=== PATIENT | female | born 1980 ===

== ENCOUNTER 2017-07-24 05:36 | Day surgery (SDC) | payer OTHER ==
[2017-07-24] VITALS (18 sets, daily range): BP systolic 112–145; BP diastolic 57–93
[~2017-07-24] VITALS: Ht 157.5 cm; Wt 93.9 kg
[~2017-07-24 05:36] MED LIST: IBUPROFEN600 MG ORAL; TRAMADOL HCL50 MG ORAL
[2017-07-24] MEDS ORDERED: EPINEPHrine 1mg/1ml Amp ONE ×2 (07:13→10:44)
[2017-07-24] MEDS ORDERED: Bupivacaine 0.25% Inj 30ml INJ ONE (07:14)
[2017-07-24] MEDS ORDERED: Bupivacaine 0.5% Inj 30 ml vial INJ ONE (07:14)
[2017-07-24] MEDS ORDERED: Bacitracin 50000 Units Vial ONE (07:14)
[2017-07-24] MEDS ORDERED: NeoSporin Gu Irrig 1ml Amp IRRIG ONE (07:14)
[2017-07-24] MEDS ORDERED: Ropivacaine 5mg/ml Vial 30ml INJ ONE (07:14)
[2017-07-24] MEDS ORDERED: Ketorolac 30mg Inj ONE ×2 (08:00→12:00)
[2017-07-24] MEDS ORDERED: fentaNYL 100 mcg/2 mL IV ONE ×2 (08:00→12:00)
[2017-07-24] MEDS ORDERED: Propofol 200mg/20ml IV ONE (08:00)
[2017-07-24] MEDS ORDERED: Morphine Sulfate 10mg/ml Inj ONE (08:00)
[2017-07-24] MEDS ORDERED: Metoclopramide 10mg/2ml Inj ONE (08:00)
[2017-07-24] MEDS ORDERED: Vecuronium 10 MG VIAL ONE (08:00)
[2017-07-24] MEDS ORDERED: LR 1000ml ONE (08:00)
[2017-07-24] MEDS ORDERED: Glycopyrrolate 0.2mg/ml 1ml Vial ONE (08:00)
--- NOTE | 2017-07-24 08:13 | Pre-Procedure Note/Attestation ---
Pre-Procedure Note/Attestation Complete Prior to Procedure Planned Procedure: right Procedure Narrative: Right Shoulder arthroscopic rotator cuff repair with subacromial decompression Indications for Procedure Pre-Operative Diagnosis: Right shoulder rotator cuff repair Attestation I attest that I discussed the nature of the procedure; its benefits; risks and complications; and alternatives (and the risks and benefits of such alternatives ), prior to the procedure, with the patient (or the patient's legal guest services representative). I attest that, if there was a reasonable possibility of needing a blood transfusion, the patient (or the patient's legal guest services representative) was given the [facility] standardized written summary, pursuant to the Enrique Tust[place] Blood Safety Act ([place] Health and Safety Code # 1645, as amended). I attest that I re-evaluated the patient just prior to the surgery and that there has been no change in the patient's H&P, except as documented below: Gabriel Rea MD Jul 24, 2017 08:13
[2017-07-24] MEDS ORDERED: Albuterol 90mcg Inhaler 8gm INH ONE (10:38)
--- NOTE | 2017-07-24 11:19 | Operative Note - PDOC ---
Operative Note Operative Note Date of Operation/Procedure: Jul 24, 2017 Chief Complaint: Right shoulder pain Pre-op Diagnosis: Right shoulder rotator cuff repair Procedure: Right shoulder arthroscopic assisted Rotator cuff repair Right shoulder bursectomy Right shoulder acromioplasty Post-op Diagnosis: Right shoulder rotator cuff tear Acromial spur and severe bursitis Surgeon: Fide Rea MD Screener Operator: Jhonathan Richards MD Anesthesiologist: Keyur SALEH Anesthesia: general, other Specimen: none Complications: none Condition: stable Estimated Blood Loss: minimal Drains: none Implant(s) used?: Yes Indications for Procedure Rotator cuff tear requiring suture anchors x 2 Description of Procedure Rt shoulder athroscopy with complete subacromial busectomy and acromioplasty and repair of rim tear of supraspinatous Gabriel Rea MD Jul 24, 2017 11:19
--- NOTE | 2017-07-24 11:43 | Anethesia Preoperative Eval ---
Anesthesia Pre-op PMH/ROS General Date of Evaluation: Jul 24, 2017 Time of Evaluation: 07:45 Anesthesiologist: CLAUDIA ASA Score: ASA 2 Mallampati Score Class I : Soft palate, uvula, fauces, pillars visible Class II: Soft palate, uvula, fauces visible Class III: Soft palate, base of uvula visible Class IV: Only hard plate visible Mallampati Classification: Class II Surgeon: Rona Diagnosis: Rotator Cuff Tear Surgical Procedure: right Shoulder Arthroscopy Social History: alcohol use Family History: no anesthesia problems Allergies: Coded Allergies: No Known Allergies (Unverified , 07/23/17) Medications: see eMAR Anesthesia Pre-op Phys. Exam Physician Exam Last Vital Signs Date Time Temp Pulse Resp B/P (MAP) Pulse Ox O2 Delivery O2 Flow Rate FiO2 07/24/17 06:35 98.1 74 20 112/57 98 Room Air Neurologic: CN 2-12 intact Cardiovascular: RRR Respiratory: CTA Gastrointestinal: S/NT/ND Airway Exam Mallampati Score: Class II Teeth: intact Anesthesia Pre-op A/P Labs Urine Test Test 07/24/17 05:45 Urine HCG, Qualitative Negative Edmar Emery M.D. Jul 24, 2017 11:43
[2017-07-24] MEDS ORDERED: Ketorolac 30mg Inj IV PRN (11:45)
[2017-07-24] MEDS ORDERED: Metoclopramide 10mg/2ml Inj IVP PRN (11:45)
[2017-07-24] MEDS ORDERED: Morphine Sulfate 2mg/ml Inj IVP PRN (11:45)
[2017-07-24] MEDS ORDERED: Midazolam 2mg/2ml Inj IVP PRN (11:45)
--- NOTE | 2017-07-24 11:45 | Immediate Post-Op Evaluation ---
Immediate Post-Op Evalulation Immediate Post-Op Evalulation Procedure: Right Shoulder Arthroscopy Date of Evaluation: Jul 24, 2017 Time of Evaluation: 11:45 IV Fluids: 1000 Blood Products: 0 Estimated Blood Loss: 0 Urinary Output: 0 Blood Pressure Systolic: 123 Blood Pressure Diastolic: 78 Pulse Rate: 70 Respiratory Rate: 16 O2 Sat by Pulse Oximetry: 99 Temperature (Fahrenheit): 98.2 Pain Score (1-10): 0 Nausea: No Vomiting: No Patient Status: awake, reacts, patent Hydration Status: adequate Drug: ANCEF Given Within 1 Hr of Incision: Yes Time Given: 08:30 Edmar Emery M.D. Jul 24, 2017 11:45
[2017-07-24] MEDS ORDERED: LR 1000ml 1,000 ML IVLG SCH (12:01)
[2017-07-24] MEDS: fentaNYL 100 mcg/2 mL IV PRN ×2 (12:10→12:34)
--- NOTE | 2017-07-28 08:30 | Operative Note - Dictated ---
DATE OF OPERATION: 07/24/2017 PREOPERATIVE DIAGNOSIS: Right shoulder rotator cuff tear. POSTOPERATIVE DIAGNOSES: 1. Right shoulder rim-type tear with supraspinatus tendon of the rotator cuff. 2. Right shoulder large subacromial spurring and impinging on the rotator cuff. 3. Right shoulder severe subacromial bursitis. PROCEDURES: 1. Right shoulder arthroscopic rotator cuff repair using two JuggerKnot 2.9 anchors. 2. Right shoulder arthroscopic acromioplasty. 3. Right shoulder arthroscopic complete bursectomy and subacromial decompression. SURGEON: Gabriel Rea M.D. QUALITY CONTROL CLERK: Jhonathan Lin M.D. ANESTHESIA: General with scalene block by Dr. Edmar Emery. ESTIMATED BLOOD LOSS: Minimal. DRAINS: None. COMPLICATIONS: None. INDICATION FOR PROCEDURE: The patient presented with right shoulder complaints consistent with a rotator cuff tear. She failed conservative treatment and imaging confirmed her diagnosis. It was felt at that time that patient would benefit from surgical intervention. The risks, benefits, and alternatives of the surgery were discussed with the patient. The risks including, but not limited to infection, stiffness, pain, nerve damage, blood clots, development of arthritis, etc. were reviewed. The patient understood the risks and wished to proceed. OPERATIVE FINDINGS: Examination under anesthesia demonstrated the patient had full range of motion. There is no gross subluxation or multidirectional instability. Arthroscopic evaluation of the shoulder was performed beginning with the glenohumeral joint. There was no significant chondromalacia of the glenohumeral joint and labrum, both anterior and posterior were intact. The biceps tendon was intact without evidence of tearing. There was a large tear of the complete supraspinatus tendon off the greater tuberosity. The infraspinatus and subscapularis were completely intact. At all times, neurovascular structures were protected. DESCRIPTION OF PROCEDURE: The patient was identified by himself in the operative area. The right upper extremity was marked then taken to the operating room under adequate anesthesia. Next, the patient was placed in a lateral decubitus position with the right side up. The preciado bag was inflated. Axillary roll was properly placed. The head was placed in the neutral position. Next, the right upper extremity was prepped and draped in usual sterile fashion and manner and the right arm was placed in balanced suspension. Next, the time-out was performed confirming the right upper extremity was correct and the patient had received 2 g Ancef IV. Next, a standard posterior portal was established. This was difficult due to the patient's shoulder and anatomy. Next, arthroscopic visualization was used to create the anterior portal, which again was difficult due to the patient's shoulder size and anatomy. Next, diagnostic arthroscopy was performed again with the glenohumeral joint. Again, there was no significant chondromalacia or cartilage damage to the glenohumeral joint. The anterior and posterior labrum were intact as well as the biceps tendon. Evaluation of the rotator cuff demonstrated a rim tear of the supraspinatus tendon with a slight retraction. The infraspinatus and subscapularis were intact. Next, attention was turned subacromially thickened, inflamed bursa, which took long period of time removing and performing subacromial decompression. An arthroscopic wand was used to begin with bursectomy and next a shaver was used to complete the bursectomy above the rotator cuff. Hemostasis was achieved using and attention was turned to the acromion. There was noted a large subacromial spur, which presented lateral portal placement. A shaver was introduced with complete removal of the subacromial spur, and finally acromioplasty was performed. After acromioplasty was performed and all debris evacuated, portal was then established and the cuff was evaluated superiorly. Again, there was noted a rim tear of the supraspinatus. The greater tuberosity was then debrided using a geovanny identified. Next, a 2.9 JuggerKnot anchor was then placed anteriorly with 4 suture leads and a second anchor was placed just posteriorly to it. Next, the sutures were then passed from anterior to posterior and then passed from posterior to anterior replacing the supraspinatus tendon onto the contact and range of motion was intact. There was no further impingement on the acromion and hemostasis was achieved. Next, the scope was withdrawn, the fluid . The skin incisions were closed in sterile fashion. Steri-Strips were applied as well as dry sterile dressing. The patient was complications. Gabriel Rea M.D. DR: AYAZ JOB#: [id number] CC: [email or web address]
== END 2017-07-24 15:15 | disposition home or self-care (01) ==
LOC: SUR 05:36
DX: M75.111 Incomplete rotator cuff tear or rupture of right shoulder, not specified as traumatic (principal); M71.9 Bursopathy, unspecified
CPT/HCPCS: 29826; 29827; 81025; J0171; J0690; J1885; J2250; J2270; J2405; J2704; J2765; J2795; J3010; J3490; J7120; 94003; 94150; C1713